=== PATIENT | male | born 1950 | race Caucasian/White ===

== ENCOUNTER → 2019-12-11 | Outpatient (CLI) | payer MEDICARE, BC ==
[~2019-12-11] MED LIST: ADV100INH INH; ASPI-527 PO; ASPI81CH33 PO; ATOR40TA75 PO; CALC-211 PO; CHRO1000 PO; CODCAP10 PO; CVS1CAP2 PO; L-LY500T14 PO; LEVO25TA5 PO; MULTCAP PO; POTA8TAB8 PO; PROAAER10 INH; RA M500C PO; UBID200C5 PO; [UNRECOGNIZED DRUG - OTHER] PO; baking soda PO; tumeric
== END ==
LOC: M LABSMTC 09:53
PROVIDERS: ATTEND Anesthesiology
DX: Z03.818 Encounter for observation for suspected exposure to other biological agents ruled out (principal); Z11.59 Encounter for screening for other viral diseases
CPT/HCPCS: C9803; U0003

== ENCOUNTER 2019-12-16 12:23 | Day surgery (SDC) | payer MEDICARE, BC ==
[~2019-12-16] VITALS: Ht 167.6 cm; Wt 66.6 kg
[~2019-12-16 12:23] MED LIST changes: -ASPI81CH33 PO; -CALC-211 PO; -CHRO1000 PO; -CODCAP10 PO; -CVS1CAP2 PO; -L-LY500T14 PO; -MULTCAP PO; -POTA8TAB8 PO; -RA M500C PO; -UBID200C5 PO; -[UNRECOGNIZED DRUG - OTHER] PO; -baking soda PO; +fentaNYL 100 MCG/2 ML INJECTION (J3010) As Ordered ONE; -tumeric
[2019-12-16] MEDS ORDERED: LIDOCAINE 1% SDV 30ML VIAL As Ordered ONE (12:32)
[2019-12-16] MEDS ORDERED: ceFAZolin 1GM VIAL (J0690 PER 500MG) As Ordered ONE (13:07)
[2019-12-16] MEDS ORDERED: L-LY500T14 PO (13:55)
[2019-12-16] MEDS ORDERED: MULTCAP PO (13:55)
[2019-12-16] MEDS ORDERED: ASPI81CH33 PO (13:55)
[2019-12-16] MEDS ORDERED: POTA8TAB8 PO (13:55)
[2019-12-16] MEDS ORDERED: CODCAP10 PO (13:55)
[2019-12-16] MEDS ORDERED: UBID200C5 PO (13:55)
[2019-12-16] MEDS ORDERED: CALC-211 PO (13:55)
[2019-12-16] MEDS ORDERED: [UNRECOGNIZED DRUG - OTHER] PO (13:55)
[2019-12-16] MEDS ORDERED: tumeric (13:55)
[2019-12-16] MEDS ORDERED: RA M500C PO (13:55)
[2019-12-16] MEDS ORDERED: CHRO1000 PO (13:55)
[2019-12-16] MEDS ORDERED: baking soda PO (13:55)
[2019-12-16] MEDS ORDERED: CVS1CAP2 PO (13:55)
[2019-12-16] MEDS ORDERED: ceFAZolin SOD 1 GM in D5W MINI-BAG PLUS 50 ML IV ONE (14:00)
[2019-12-16] MEDS ORDERED: propofoL 200 MG/20 ML VIAL As Ordered ONE ×2 (14:07→14:48)
[2019-12-16] MEDS ORDERED: LR 1,000 ML IV ONE (14:15)
[2019-12-16] MEDS ORDERED: MIDAZOLAM INJ 2MG/2ML VIAL (J2250 PER 1MG) As Ordered ONE (14:46)
[2019-12-16] MEDS ORDERED: fentaNYL 100 MCG/2 ML INJECTION (J3010) As Ordered ONE (14:47)
[2019-12-16] MEDS ORDERED: LIDOCAINE 2% 100MG/5ML SDV (FOR ANES.) As Ordered ONE ×2 (14:48→15:34)
[2019-12-16] MEDS ORDERED: dexameTHASONE 4 MG/ML 1ML VIAL (J1100 PER 1MG) As Ordered ONE (15:34)
[2019-12-16] MEDS ORDERED: ONDANSETRON 4MG/2ML VIAL As Ordered ONE (15:46)
[2019-12-16 16:20] VITALS: BP 169/79
--- NOTE | 2020-01-08 10:30 | RO ---
DATE OF OPERATION: 12/16/2019 PREOPERATIVE DIAGNOSIS: Subcutaneous cardiac rhythm monitor in situ. POSTOPERATIVE DIAGNOSIS: Subcutaneous cardiac rhythm monitor in situ. PROCEDURE PERFORMED: Removal of subcutaneous cardiac rhythm monitor. FINDINGS: Subcutaneous cardiac rhythm monitor in situ. SURGEON: Miles Samano MD DIP UNIT OPERATOR: None. ANESTHESIA: Lidocaine 1% local/monitored anesthetic care. SPECIMENS: Old Medtronic LINQ subcutaneous cardiac rhythm monitor. ESTIMATED BLOOD LOSS: 1 mL. No blood products replaced. No drains. No complications. PROCEDURE DESCRIPTION: The patient was prepped and draped over the left anterior chest. Lidocaine 1% was used for local anesthetic. An incision was made with a #15 blade over the existing incision of the implanted loop recorder. The 15 blade was used to get down to the anterior capsule overlying the loop recorder. The loop recorder was then grabbed with a snap and pulled out of the pocket. The incision was closed using a 4-0 Biosyn suture applied subcutaneously to approximate the skin with the suture ends protruding from either end of the incision by 1 cm on both sides. Next, three layers of Dermabond was applied and the Biosyn suture was pulled through the incision line and removed entirely. The patient tolerated the procedure well without any immediate complications. [facility]
== END 2019-12-16 16:30 | disposition home or self-care (01) ==
LOC: M SDC 12:23
PROVIDERS: ATTEND Internal Medicine Cardiovascular Disease
DX: Z45.09 Encounter for adjustment and management of other cardiac device (principal); Z79.82 Long term (current) use of aspirin; Z79.899 Other long term (current) drug therapy
CPT/HCPCS: 33286; J0690; J1100; J2250; J2405; J3010

== ENCOUNTER → 2023-12-13 | Outpatient (CLI) | payer MEDICARE, BC ==
[~2023-12-13] MED LIST changes: +ASPI81CH33 PO; +CALC-211 PO; +CHRO1000 PO; +CODCAP6 PO; +CVS1CAP2 PO; +L-LY500T14 PO; +MULTCAP PO; +POTA1TAB22 PO; +RA M500C PO; +UBID200C5 PO; +[UNRECOGNIZED DRUG - OTHER] PO; +baking soda PO; -fentaNYL 100 MCG/2 ML INJECTION (J3010) As Ordered ONE; +tumeric
== END ==
LOC: M PLAIMG 14:03
PROVIDERS: ATTEND Registered Nurse
DX: I10 Essential (primary) hypertension (principal); Q21.12 Patent foramen ovale; I08.8 Other rheumatic multiple valve diseases